=== PATIENT | female | born 1940 | race Caucasian/White ===

== ENCOUNTER 2024-07-11 15:55 | Emergency (ER) | payer MEDICARE, SELFPAY ==
[2024-07-11 15:56] VITALS: BP 126/75; PULSE 66; RESP 18; TEMP 36.9; O2SAT 96
--- NOTE | 2024-07-11 16:15 | RAD_ITS ---
STUDY: X-RAY - LEFT SHOULDER REASON FOR EXAM: Female, 83 years old. Trauma TECHNIQUE: 4 view(s) of the shoulder. COMPARISON: None. FINDINGS: Severely narrowed glenohumeral articulation with narrowing of subacromial space which may be consistent with rotator cuff tendon tear.. Normal acromioclavicular joint. Normal acromion. Normal humeral head and visualized proximal humerus. The soft tissue structures are unremarkable. Normal visualized pulmonary apex. RAD/Shoulder min 2 Views IMPRESSION: Severe degenerative changes. No acute fracture or dislocation. Electronically Signed: Josafat Richardson MD at 17:09 EDT ,
--- NOTE | 2024-07-11 16:17 | EDS_ITS ---
HPI HPI - Fall History of Present Illness Chief Complaint: Fall Narrative Narrative: 83-year-old female presents via EMS status post fall on Wednesday, 5 days ago. She states that she was on the phone with the [facility]. She had told them about her falling on Wednesday, that she was having a lot of left shoulder pain and bilateral arm pain. The next thing that she knew, she said the police were at her door and that the person on the other end of the phone had called is a concerned citizen. She states that on Wednesday, 5 days ago, her dog caused her to fall. She complains of left shoulder pain but states that she does not have a ball in her left shoulder socket, and she complains of bilateral forearm pain as well as left lower extremity anterior tibial pain. She has been taking Tylenol without relief. She states she had told the person on the phone that she did not think that her arm was broken, but complains of 10 out of 10 pain so they told her that she needed to be evaluated. When she fell, she denies hitting her head or loss of consciousness at that time. PFSH PFSH Allergy/AdvReac Type Severity Reaction Status Date / Time grass pollen Allergy Intermediate COUGH Verified 07/11/24 15:59 Influenza Virus Vaccines Allergy Intermediate NEEDS Verified 07/11/24 15:59 (flu shot) FOLLOW-UP Penicillins Allergy Intermediate Rash Verified 07/11/24 15:59 Social History Smoking Status: Never smoker ROS ROS ED ROS Narrative Constitutional: No fever, no chills. HEENT: No sore throat. No neck pain. No loss of vision. No rhinorrhea. Cardiovascular: No chest pain. No palpitations. No pedal edema. Respiratory: No cough, no shortness of breath. Abdominal: No abdominal pain. No nausea. No vomiting. Genitourinary: No dysuria. No hematuria. Musculoskeletal: No myalgias. Left shoulder pain. Bilateral forearm pain. Left lower leg pain. Neurologic: No headaches. No dizziness. No lightheadedness. Skin: No rash. No change in color. Psychiatric: No depression. No anxiety. EXAM Physical Exam Narrative Exam Narrative: GCS 15. ABCs intact. Mild tenderness to palpation left shoulder, no noted deficit. Bilateral radial pulses palpated. Mild tenderness to palpation bilateral forearms, no crepitance, no obvious deformity. Mild tenderness to palpation left anterior tibial area, no swelling or ecchymosis. Cardiovascular examination regular rate and rhythm. Lungs are clear to auscultation bilaterally. Abdomen is soft and nontender with normal active bowel sounds. Patient is awake, alert, and oriented. Const Vital Signs: 07/11/24 15:56 07/11/24 16:34 07/11/24 18:00 Temperature 98.4 F Temperature Source Temporal Pulse Rate 66 67 Respiratory Rate 18 18 Respiratory Effort Normal Non-Labored Respiratory Depth Normal Respiratory Pattern Normal Blood Pressure 126/75 H 127/73 H Blood Pressure Mean 92 91 Pulse Ox 96 97 Oxygen Delivery Method Room Air Room Air MDM MDM MDM Narrative Medical decision making narrative: Differential diagnosis includes but not limited to proximal humerus fracture versus shoulder dislocation versus bilateral forearm fractures versus contusion versus left lower extremity contusion versus fracture. I have very low suspicion for fractures in this patient as she has been ambulating freely over the last 5 days with her cane. X-rays will be obtained of the left shoulder, bilateral forearms, and left lower extremity. They will be interpreted by myself independently. I asked the patient where she resides currently, and she states that she lives with her dog in an apartment + her son's house. She states that her brother is going to help her move to assisted living soon. She states she does not want to be admitted for placement. I feels that she has the capacity to make this decision. She states that she is trying to get to independent living. I reviewed and independently interpreted the x-rays of the bilateral forearms, left shoulder, and of the tibia and fibula. I see no evidence of acute fracture on my independent interpretations. I reviewed the radiology reports which confirm my independent interpretations but comment on possible age indeterminant left tibial plateau fracture and suggest either CT or knee films. I reviewed the radiology report of the CT of the knee and there is no evidence of an acute fracture. At this point in time, through shared decision making, I rediscussed admission with the patient, but she declined. She would like to be discharged and states that she is motivated to be discharged home. She states her brother is going to help her find placement in independent living. I feel she can be discharged to follow-up. Return instructions to the emergency department were reviewed. Disposition is discharged home in stable condition. History & Record Review Discussion w/independent historian: Patient Radiography Diagnostic Testing: Clinical Impression(s) from Imaging Studies Shoulder X-Ray 07/11/24 16:15 IMPRESSION: Severe degenerative changes. No acute fracture or dislocation. Electronically Signed: Josafat Richardson MD at 17:09 EDT , Forearm X-Ray 07/11/24 16:30 IMPRESSION: Degenerative changes. No acute fracture or dislocation Electronically Signed: Josafat Richardson MD at 17:13 EDT , Tibia/Fibula X-Ray 07/11/24 16:30 IMPRESSION: Apparent medial tibial plateau fracture of indeterminate chronicity.. Otherwise normal tibia and fibula. Electronically Signed: oJsafat Richardson MD at 17:15 EDT , Forearm X-Ray 07/11/24 16:46 IMPRESSION: No evidence for acute fracture or dislocation. Electronically Signed: Josafat Richardson MD at 17:17 EDT , Lower Extremity CT 07/11/24 18:20 IMPRESSION: Moderate degenerative osteoarthritic changes. No acute fracture or dislocation. MRI would be helpful exclude ligamentous or tendinous injury if clinically warranted Electronically Signed: Josafat Richardson MD at 19:22 EDT , Discharge Plan Triage Chief Complaint: Fall ED Provider: Jethro Beatty Dx/Rx/DC Orders Clinical Impression: Fall, Shoulder pain, Pain in both forearms, Lower extremity pain, left Instructions: ED Arthralgia, ED Fall with Uncertain Cause Primary Care Provider: Brianna Sal Referrals: NOT,DEFINED [Non-Staff] - Activity Restrictions/Additional Instructions: Follow-up with your primary care provider soon as possible. Return with new or worsening symptoms. Print Language: Georgian Disposition Disposition: Home, Self Care
--- NOTE | 2024-07-11 16:30 | RAD_ITS ---
STUDY: X-RAY - LEFT TIBIA AND FIBULA REASON FOR EXAM: Female, 83 years old. Trauma TECHNIQUE: 3 view(s) of the tibia and fibula were obtained. COMPARISON: None. FINDINGS: Normal visualized tibia. Normal visualized fibula. There appears to be a fracture of the medial tibial plateau only seen on the AP projection of indeterminate chronicity. Would recommend dedicated radiographic study or CT of the knee for further evaluation RAD/Tibia & Fibula 2 Views IMPRESSION: Apparent medial tibial plateau fracture of indeterminate chronicity.. Otherwise normal tibia and fibula. Electronically Signed: Josafat Richardson MD at 17:15 EDT ,
--- NOTE | 2024-07-11 16:30 | RAD_ITS ---
STUDY: X-RAY - LEFT RADIUS AND ULNA REASON FOR EXAM: Female, 83 years old. trauma TECHNIQUE: 4 view(s) of the forearm. COMPARISON: None. FINDINGS: There is no demonstrated soft tissue swelling. Tiny joint mice are present possibly due to old trauma or synovial osteochondromatosis Normal visualized radius. Normal visualized ulna. RAD/Forearm 2 Views IMPRESSION: Degenerative changes. No acute fracture or dislocation Electronically Signed: Josafat Richardson MD at 17:13 EDT ,
--- NOTE | 2024-07-11 16:46 | RAD_ITS ---
STUDY: X-RAY - RIGHT RADIUS AND ULNA REASON FOR EXAM: Female, 83 years old. pain TECHNIQUE: AP and lateral view(s) of the forearm. COMPARISON: None. FINDINGS: Tiny joint mouse is noted in the elbow possibly due to old trauma. Normal visualized radius. Normal visualized ulna. RAD/Forearm 2 Views IMPRESSION: No evidence for acute fracture or dislocation. Electronically Signed: Josafat Richardson MD at 17:17 EDT ,
[2024-07-11 18:00] VITALS: BP 127/73; PULSE 67; RESP 18; O2SAT 97
--- NOTE | 2024-07-11 18:20 | CT_ITS ---
CT LEFT LOWER EXTREMITY WITH 3-D IMAGING CLINICAL INDICATION: pain, abnormal xray TECHNIQUE: Axial CT images of the LEFT lower extremity was performed IV contrast material. Coronal and sagittal reformats were provided. The protocol utilizes one or more of the following dose reduction techniques: automated exposure control, adjustment of mA and/or kV according to patient size,and/or use of iterative reconstruction technique. RADIATION DOSAGE (If Supplied By Facility): CTDIvol = ( 15.35 ) mGy, DLP = ( 818.13 ) mGycm COMPARISON: FINDINGS: Bones: Osseous structures are normal without evidence of fracture or dislocation. There is narrowing of the medial compartment of the joint with spurring of the medial tibial and femoral condyles. There is also narrowing of the lateral compartment of the patellofemoral joint space No lytic or blastic osseous masses. Soft Tissues: The deep soft tissue structures are unremarkable. The superficial soft tissues are unremarkable without evidence of edema, hematoma, or foreign body. CT/Extremity Lower without Contra IMPRESSION: Moderate degenerative osteoarthritic changes. No acute fracture or dislocation. MRI would be helpful exclude ligamentous or tendinous injury if clinically warranted Electronically Signed: Josafat Richardson MD at 19:22 EDT ,
[2024-07-11 19:51] VITALS: BP 118/87; PULSE 72; RESP 18; TEMP 36.6; O2SAT 100
== END 2024-07-11 19:58 | disposition home or self-care (01) ==
PROVIDERS: Emergency Provider Emergency Medicine; PCP Family Medicine; Visit Provider Emergency Medicine
DX: M79.631 Pain in right forearm (principal); M79.632 Pain in left forearm; M79.605 Pain in left leg; M25.512 Pain in left shoulder; W19.XXXA Unspecified fall, initial encounter
CPT/HCPCS: 73030; 73090; 73590; 73700; 99282